=== PATIENT | male | born 1985 | race Caucasian/White ===

== ENCOUNTER 2017-02-12 16:53 | Emergency (ER) | payer MEDICAID, OTHER ==
[~2017-02-12] VITALS: Ht 185.4 cm; Wt 93.2 kg
[2017-02-12] MEDS ORDERED: IBUPROFEN 800 MG TABLET PO ONE (18:30)
[2017-02-12 18:50] VITALS: BP 140/90
== END 2017-02-12 19:33 | disposition home or self-care (01) ==
LOC: EMS 16:56
DX: K04.7 Periapical abscess without sinus (principal); Z88.1 Allergy status to other antibiotic agents; Z88.0 Allergy status to penicillin
CPT/HCPCS: 99283

== ENCOUNTER 2020-09-07 17:22 | Emergency (ER) | payer OTHER ==
[~2020-09-07] VITALS: Ht 177.8 cm; Wt 75.0 kg
[2020-09-07 17:58] VITALS: BP 133/91
[2020-09-07] MEDS ORDERED: OFLOXACIN 0.3% 5 ML OPHTHALMIC SOLUTION OU ONE (18:00)
[2020-09-07] MEDS ORDERED: IBUPROFEN 600 MG TABLET PO ONE (18:00)
== END 2020-09-07 19:03 | disposition home or self-care (01) ==
LOC: EMS 17:22
DX: H10.9 Unspecified conjunctivitis (principal); Z88.1 Allergy status to other antibiotic agents; Z88.0 Allergy status to penicillin
CPT/HCPCS: 99283